=== PATIENT | male | born 2000 | race Caucasian/White ===

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

== ENCOUNTER 2019-03-17 01:28 | Emergency (ER) | payer SELFPAY ==
[~2019-03-17] VITALS: Ht 180.3 cm; Wt 63.6 kg
[2019-03-17 01:28] VITALS: BP 132/73
[~2019-03-17 01:28] MED LIST: AUGM875T28 PO
--- NOTE | 2019-03-17 04:01 | REP ---
Clinical: Pain and swelling Technique: AP, lateral, bilateral oblique views left wrist . Findings: The carpal bones, surrounding osseous structures, soft tissues, and joint spaces are normal. There is no evidence for acute fracture or dislocation. No subcutaneous emphysema or radiodense foreign body. Impression: Normal wrist series. No acute fracture or dislocation Electronically Signed by Walt Frias MD 03/17/2019 03:52 A
== END 2019-03-17 03:48 | disposition left against medical advice (07) ==
LOC: M ED 01:28
DX: Z53.21 Procedure and treatment not carried out due to patient leaving prior to being seen by health care provider (principal)

== ENCOUNTER 2019-08-18 23:05 | Emergency (ER) | payer SELFPAY ==
[~2019-08-18] VITALS: Ht 180.3 cm; Wt 63.1 kg
[2019-08-18 23:05] VITALS: BP 124/64
== END 2019-08-18 23:54 | disposition left against medical advice (07) ==
LOC: M ED 23:05
DX: Z53.21 Procedure and treatment not carried out due to patient leaving prior to being seen by health care provider (principal)

== ENCOUNTER → 2021-04-30 | Outpatient (CLI) | payer OTHER ==
[~2021-04-30] MED LIST changes: +AZIT-12 PO; +HYDR-4571; +ONDA-84 PO; +OXYC-517; +OXYC-517 PO; +PROC10TA5 PO
== END ==
LOC: M PLARAD 10:10
PROVIDERS: ATTEND Specialist
DX: C81.90 Hodgkin lymphoma, unspecified, unspecified site (principal)
CPT/HCPCS: 78815; A9552

== ENCOUNTER → 2021-08-05 | Outpatient (CLI) | payer OTHER ==
[~2021-08-05] MED LIST changes: +ALLO100T PO; +ALLO10TA PO; +ATIV1TAB10 PO; +LIDO1CRE42 TOP
== END ==
LOC: M PLARAD 07:54
PROVIDERS: ATTEND Specialist
DX: C81.98 Hodgkin lymphoma, unspecified, lymph nodes of multiple sites (principal)
CPT/HCPCS: 78815; A9552

== ENCOUNTER → 2021-09-12 | Outpatient (CLI) | payer OTHER, MEDICAID ==
[~2021-09-12] VITALS: Ht 180.3 cm; Wt 63.4 kg
[2021-09-12 09:10] VITALS: BP 127/86
== END ==
LOC: M PAL 09:01
PROVIDERS: ATTEND Nurse Practitioner Adult Health
DX: C81.98 Hodgkin lymphoma, unspecified, lymph nodes of multiple sites (principal); F17.220 Nicotine dependence, chewing tobacco, uncomplicated; F12.90 Cannabis use, unspecified, uncomplicated; Z79.899 Other long term (current) drug therapy; Z72.0 Tobacco use; Z80.3 Family history of malignant neoplasm of breast; Z80.8 Family history of malignant neoplasm of other organs or systems; Z80.1 Family history of malignant neoplasm of trachea, bronchus and lung; Z92.21 Personal history of antineoplastic chemotherapy

== ENCOUNTER → 2021-12-18 | Outpatient (CLI) | payer MEDICAID, OTHER | LOC: M LABSMTC 11:03 | PROVIDERS: ATTEND Anesthesiology | DX: Z01.818 Encounter for other preprocedural examination (principal); Z11.52 Encounter for screening for COVID-19 ==

== ENCOUNTER 2021-12-20 11:22 | Day surgery (SDC) | payer OTHER ==
[~2021-12-20] VITALS: Ht 180.3 cm; Wt 63.3 kg
[~2021-12-20 11:22] MED LIST changes: +MUPIROCIN 2% OINT 22 GM TUBE TOP ONE; +ceFAZolin SOD 2 GM in IV 1 EA IV ONE
[2021-12-20] MEDS ORDERED: BUPIVACAINE LIPOSOME/PF 1.3% 20ML VIAL (13.3MG/ML)(EXPAREL) As Ordered ONE (12:00)
[2021-12-20] MEDS ORDERED: NS 1,000 ML IV SCH (12:10)
[2021-12-20] MEDS ORDERED: MIDAZOLAM INJ 2MG/2ML VIAL (J2250 PER 1MG) As Ordered ONE ×3 (12:33→12:40)
[2021-12-20 13:13] VITALS: BP 102/56
[2021-12-20] MEDS ORDERED: LIDOCAINE 1% MDV 20ML VIAL As Ordered ONE (13:51)
== END 2021-12-20 13:47 | disposition home or self-care (01) ==
LOC: M OPP 11:22
PROVIDERS: ATTEND Thoracic Surgery (Cardiothoracic Vascular Surgery)
DX: Z46.82 Encounter for fitting and adjustment of non-vascular catheter (principal); Z85.71 Personal history of Hodgkin lymphoma
CPT/HCPCS: 32552; C9290; J0690; J2250

== ENCOUNTER → 2022-02-10 | Outpatient (CLI) | payer OTHER ==
[~2022-02-10] MED LIST changes: -MUPIROCIN 2% OINT 22 GM TUBE TOP ONE; -ceFAZolin SOD 2 GM in IV 1 EA IV ONE
== END ==
LOC: M CLY 15:30
PROVIDERS: ATTEND Family Medicine
DX: R07.89 Other chest pain (principal)

== ENCOUNTER → 2022-08-13 | Outpatient (CLI) | payer OTHER ==
[~2022-08-13] MED LIST changes: +ISOVUE-370 76% 100ML VIAL As Ordered ONE
== END ==
LOC: M RAD 07:59
PROVIDERS: ATTEND Family Medicine
DX: R07.89 Other chest pain (principal); C81.90 Hodgkin lymphoma, unspecified, unspecified site
CPT/HCPCS: 71260; Q9967

== ENCOUNTER → 2023-11-30 | Outpatient (CLI) | payer OTHER, SELFPAY ==
[~2023-11-30] VITALS: Ht 180.3 cm; Wt 65.0 kg
[~2023-11-30] MED LIST changes: -ISOVUE-370 76% 100ML VIAL As Ordered ONE; -LIDO1CRE42 TOP; +LIDO30CR18 TOP; +LIDOCAINE 1% MDV 20ML VIAL As Ordered ONE; +MIDAZOLAM INJ 2MG/2ML VIAL As Ordered ONE; +ceFAZolin 2 GM/D5W 50 ML IV BAG As Ordered ONE; +fentaNYL 100 MCG/2 ML INJECTION As Ordered ONE
[2023-11-30 09:26] VITALS: TEMP 99
[2023-11-30] MEDS: NS 1,000 ML IV SCH (10:03)
[2023-11-30] MEDS: ceFAZolin SOD 2 GM in IV 1 EA IV ONE (10:03)
[2023-11-30 11:30] VITALS: BP 144/85; O2SAT 99
== END ==
LOC: M IRPRO 09:22
PROVIDERS: ATTEND Internal Medicine Hematology & Oncology
DX: C81.90 Hodgkin lymphoma, unspecified, unspecified site (principal)
CPT/HCPCS: 36590; 99152; 99153; J0690; J2250; J3010

== ENCOUNTER → 2025-01-30 | Outpatient (REF) | payer OTHER ==
[~2025-01-30] MED LIST changes: -LIDOCAINE 1% MDV 20ML VIAL As Ordered ONE; -MIDAZOLAM INJ 2MG/2ML VIAL As Ordered ONE; -ceFAZolin 2 GM/D5W 50 ML IV BAG As Ordered ONE; -fentaNYL 100 MCG/2 ML INJECTION As Ordered ONE
[2025-01-30 17:45] LABS: BASO # 0.1 10^3/uL (0.0-0.2); BASO % 0.9 % (0.0-1.0); EOS # 0.4 10^3/uL (0.0-0.5); EOS % 5.2 % (0.0-3.0); LYMPH # 1.3 10^3/uL (1.5-5.0); LYMPH % 19.5 % (24.0-44.0); MONO # 0.6 10^3/uL (0.0-0.8); MONO % 8.1 % (2.0-8.0); NEUTROPHILS # 4.5 10^3/uL (1.5-8.5); NEUTROPHILS % 66.2 % (36.0-66.0); PLATELET COUNT, AUTOMATED 273 10^3/uL (150-450)
[2025-01-30 18:06] LABS: ALT/SGPT 28 U/L (7.0-40); AST/SGOT 25 U/L (<34); CALCIUM LEVEL 9.0 MG/DL (8.5-10.1); CARBON DIOXIDE LEVEL 30 MMOL/L (20-31); CHLORIDE LEVEL 104 MMOL/L (98-107); CREATININE FOR GFR 0.75 MG/DL (0.70-1.30); GLOMERULAR FILTRATION RATE > 90.0 (>60); POTASSIUM SERUM 4.7 MMOL/L (3.5-5.1); SODIUM LEVEL 142 MMOL/L (136-145)
== END ==
LOC: M SFHCCLAY 11:57
PROVIDERS: ATTEND Family Medicine
DX: C81.90 Hodgkin lymphoma, unspecified, unspecified site (principal)